=== PATIENT | male | born 1980 | race Caucasian/White ===

== ENCOUNTER 2016-11-11 22:13 | Emergency (ER) | payer MEDICAID ==
[~2016-11-11] VITALS: Ht 167.6 cm; Wt 77.1 kg
[2016-11-11 22:23] VITALS: BP 125/77
== END 2016-11-11 23:51 | disposition home or self-care (01) ==
LOC: ER 22:14
DX: S62.111A Displaced fracture of triquetrum [cuneiform] bone, right wrist, initial encounter for closed fracture (principal); W01.0XXA Fall on same level from slipping, tripping and stumbling without subsequent striking against object, initial encounter; Y92.89 Other specified places as the place of occurrence of the external cause; Y93.89 Activity, other specified; Y99.8 Other external cause status
CPT/HCPCS: 73110; 73130-TC; A4606; Z7610

== ENCOUNTER 2017-03-15 21:02 | Emergency (ER) | payer MEDICAID ==
[~2017-03-15] VITALS: Ht 167.6 cm; Wt 74.8 kg
[2017-03-15 21:14] VITALS: BP 139/81
[2017-03-15] MEDS ORDERED: IBUPROFEN 600 MG TABLET PO ONE ×2 (21:35→22:00)
== END 2017-03-15 22:40 | disposition home or self-care (01) ==
LOC: ER 21:06
DX: M79.642 Pain in left hand (principal); M79.641 Pain in right hand
CPT/HCPCS: 73130 ×2; 99284; A4606; Z7610